=== PATIENT | male | born 1985 | race Caucasian/White ===

== ENCOUNTER 2017-05-31 20:41 | Emergency (ER) | payer OTHER ==
[~2017-05-31] VITALS: Ht 190.5 cm; Wt 95.3 kg
[~2017-05-31 20:41] MED LIST: DARVOCET-N 1001 EACH PO; KEFLEX 500MG.500 MG PO
--- NOTE | 2017-06-01 | Emergency Room Report ---
History of Present Illness Time Seen by [id number] Presenting Problem in Triage Pt arrived:Walked Presenting Problem:C/O LACERATION TO RIGHT UPPER ARM.FLORESCENT LIGHT FELL OUT OF CEILING. Onset of symptoms date/time:05/31/1711/16/1499 or onset unknown for: Treatment Prior to Arrival: [employer] Provided by: Sepsis Risk Assessment: Temp: 98.1 B/P: 131/73 MAP: 101 Pulse: 75 Resp: 18 Recent fever? N Clinical Suspician of Infection? N Mental Status: 1 - Regular (Normal Baseline) Sepsis Risk:Low Sepsis Risk Have you (or family members/close friends) recently traveled outside the [place]? N If Yes, where/when: Have you had exposure to infectious disease within the past month? N TB? Other? Specify: Comment The patient sustained a laceration of his RIGHT upper arm at 3 PM today when a light fixture fell and the metal cut him. He did not sustain an injury from broken glass. No numbness or weakness. Last tetanus immunization 2008. He has wiped the laceration with water and applied a bandage after the injury occurred. The patient has a listed ALLERGY to penicillin, but has never received this medication because his sister was ALLERGIC. He takes Keflex without difficulty. ALLERGIES Coded Allergies: Penicillins (05/31/17) History Medical History General CAD? No Angina: No RI: No Hypertension? No Hyperlipidemia? No CHF? No DVT? No PE? No COPD? No Asthma? No Anemia? No GERD? No Gastric ulcers? No GI Bleed? No Hernia? No Thyroid Problems? No Hypothyroidism? No CVA? No Seizures? No Diabetes? No Renal Insuffiency? No End Stage Renal Disease? No UTI? No Stones? No BPH? No GB Disease: No Nephritic Syndrome? No Asplenia? No Hepatitis? No Sickle Cell Disease? No Arthritis? No Migraines? No Cataracts? No Glaucoma? No MRSA? No HIV? No TB? No Anxiety? No Depression? No Cancer? No Immunization Hx DT/Tetanus [id number] Surgical Hx Previous Surgery?N Social History Smoking Hx Smoker: Never Smoker Tobacco: No Packs/day N/A Alcohol Alcohol: No Review of Systems All Other Systems Reviewed and Negative Constitutional denies fever Skin see HPI Psychiatric/Neurological denies numbness, denies weakness Physical Exam Vital Signs Vital Signs Date Time Temp Pulse Resp B/P Pulse O2 O2 Flow FiO2 Ox Delivery Rate 06/01 0053 98.1 85 16 137/79 95 / 0044 85 16 137/79 95 05/31 2241 98.1 75 18 131/73 96 05/31 2144 98.9 67 17 133/80 96 05/31 2051 98.0 75 20 154/75 98 General Appearance normal appearance Respiratory Status No: respiratory distress. Cardiovascular regular rate/rhythm, normal peripheral pulses Extremities 3.0 cm laceration lateral aspect RIGHT upper arm extending into subcutaneous tissue. Distal neurovascular status intact. No foreign body or contamination evident. Neurologic alert, no motor/sensory deficits Medical Decision Making LABS/Meds/Orders Pt receiving controlled substance in ED? No Results/Orders Current Medication Orders Sig/Adams Start time Last Medication Dose Route Stop Time Status Admin Cephalexin 0 .STK-MED ONE 06/01 004 DCr Monohydrate PO Diphtheria/Pertussis/ 0 .STK-MED ONE 06/01 0045 DC Tetanus Vacc IM Cephalexin 500 MG ONCE ONE 06/01 0015 DCr 06/01 Monohydrate PO 06/01 0016 0049 Diphtheria/Pertussis/ 0.5 ML ONCE ONE 06/01 0015 DC 06/01 Tetanus Vacc IM 06/01 0016 0049 Lidocaine/Epinephrine 10 ML ONCE ONE 06/01 0015 DC SC 06/01 0016 Lidocaine/Epinephrine 0 .STK-MED ONE 06/01 0008 DC .ROUTE Orders Procedure Date/time Status GEN NSG/PT REQ (NOT FOR MEDS!) 06/01 003 Active Procedures Laceration/Wound Repair Progress Laceration Repair Performed by: MARKY ROSE Consent: Verbal consent obtained. Risks and benefits: risks, benefits and alternatives were discussed Consent given by: patient Patient identity confirmed: verbally with patient Laceration location: RIGHT arm Laceration length: 3.0 cm Local anesthetic: 1 percent lidocaine with epinephrine Wound prep: Sterilly scrubbed with Hibiclens and irrigated with copious normal saline. Draping: Sterile in usual manner Patient sedated: no Debridement: None Exploration: No foreign body, contamination, or deep structure injury Layers Closed: Skin Suture material, skin: 5-0 Prolene Number of sutures: 6 Patient tolerance: Patient tolerated the procedure well with no immediate complications Departure Departure Disposition DC Home or Self Care(routine) Clinical Impression Primary Impression: Laceration of right upper arm Qualifiers: Encounter type: initial encounter Qualified Code: S41.111A - Laceration without foreign body of right upper arm, initial encounter Condition STABLE Referrals MOI RUTH (Family) Patient Instructions DI for Laceration Repair Additional Instructions Additional instructions for LACERATION: Clean the wound daily with soap and water. You may shower. Apply a thin film of antibiotic ointment such as neosporin or triple antibiotic after showering and apply a bandage. Avoid submerging the wound, no swimming. See your primary care physician or return to the [facility] in 10 days for suture removal. Return if any signs of infection including increasing pain, pus drainage, swelling, redness, red streaks, or fever. Prescriptions Current Visit Scripts Cephalexin (Keflex 500MG) 500 MG PO QID #20 [facility] Critical Care Critical Care No at 0147
[2017-06-01] MEDS ORDERED: KEFLEX500 M1 PO (00:08)
[2017-06-01 00:53] VITALS: BP 137/79
--- OUTSIDE RECORDS SUMMARY | 2017-06-03 18:39 | External Medical Summary Rpt ---
Author Author [employer] Organization [employer] Address Unknown Phone Unavailable Purpose Continuity of Care Document - through 2016
--- OUTSIDE RECORDS SUMMARY | 2017-06-03 18:39 | External Medical Summary Rpt ---
Author Author JOSE Address Unknown Phone [email or web address] Purpose Continuity of Care Document - through 2016 Problems Code Diagnosis DOS Provider Status S41.111A LACERATION W/O FOREIGN BODY OF RIGHT UPPER ARM, INIT ENCNTR
--- OUTSIDE RECORDS SUMMARY | 2017-06-03 18:39 | External Medical Summary Rpt ---
Demographics Preferred Language Telugu Marital Status Unknown Quaker Affiliation Unknown Race Unknown Ethnic Group Unknown Author Author , JOSE RIVERA Address Unknown Phone Immunization Unable to retrieve immunization data due to connection failure with Immunization Registry. Please try again later.
--- OUTSIDE RECORDS SUMMARY | 2017-06-03 18:39 | External Medical Summary Rpt ---
Demographics Preferred Language Lao Marital Status Unknown Alevism Affiliation Unknown Race Unknown Ethnic Group Unknown Author Author , JOSE RIVERA Address Unknown Phone Immunization Unable to retrieve immunization data due to connection failure with Immunization Registry. Please try again later.
--- OUTSIDE RECORDS SUMMARY | 2017-06-03 18:39 | External Medical Summary Rpt ---
Author Author JOSE Address Unknown Phone [email or web address] Purpose Continuity of Care Document - through 2016 Problems Code Diagnosis DOS Provider Status S41.111A LACERATION W/O FOREIGN BODY OF RIGHT UPPER ARM, INIT ENCNTR
== END 2017-06-01 00:54 | disposition home or self-care (01) ==
LOC: ER 20:41
PROC: 0JQD0ZZ Repair Right Upper Arm Subcutaneous Tissue and Fascia, Open Approach (ICD-10-PCS; principal; 2017-05-31)
DX: S41.111A Laceration without foreign body of right upper arm, initial encounter (principal); Z23 Encounter for immunization; W25.XXXA Contact with sharp glass, initial encounter; Y92.69 Other specified industrial and construction area as the place of occurrence of the external cause; Y99.0 Civilian activity done for income or pay